=== PATIENT | female | born 1995 | race American Indian/Alaskan Native ===

== ENCOUNTER 2017-02-27 01:55 | Emergency (ER) | payer SELFPAY ==
[2017-02-27 02:02] VITALS: BP 144/85
== END 2017-02-27 02:30 | disposition left against medical advice (07) ==
LOC: ED 01:55
DX: T78.40XA Allergy, unspecified, initial encounter (principal); Z53.21 Procedure and treatment not carried out due to patient leaving prior to being seen by health care provider

== ENCOUNTER 2020-12-21 15:05 | Emergency (ER) | payer SELFPAY ==
[2020-12-21 19:03] VITALS: BP 136/83
[2020-12-21] MEDS ORDERED: ONDANSETRON 4 MG/2 ML INJ IV ONE (19:38)
[2020-12-21] MEDS ORDERED: SODIUM CHLORIDE 0.9% 1000 ML 1,000 ML IV ONE (19:38)
[2020-12-21 20:29] LABS: Basophils # (Auto) 0.1 K/mm3 (0.0-0.1); Basophils % (Auto) 0.9 % (0.0-1.8); Eosinophils % (Auto) 0.8 % (0.0-4.3); Hematocrit 41.8 % (30.3-42.9); Hemoglobin 14.1 gm/dl (10.1-14.3); Lymphocytes # (Auto) 1.6 K/mm3 (1.2-5.4); Lymphocytes % (Auto) 27.4 % (13.4-35.0); Mean Corpuscular HGB Conc 34 % (30-34); Mean Corpuscular Volume 89 fl (79-97); Monocytes # (Auto) 0.7 K/mm3 (0.0-0.8); Monocytes % (Auto) 11.4 % (0.0-7.3); Platelet Count 266 K/mm3 (140-440); Red Cell Distribution Width 14.2 % (13.2-15.2)
[2020-12-21 20:31] LABS: Alanine Aminotransferase 10 units/L (7-56); Albumin 4.1 g/dL (3.9-5); Blood Urea Nitrogen 6 mg/dL (7-17); Calcium 9.2 mg/dL (8.4-10.2); Hemolysis Index 27
[2020-12-21 20:32] LABS: Bilirubin,Urine NEG (Negative); Blood,Urine NEG (Negative); Color,Urine Yellow (Yellow); Mucus,Urine 3+ /HPF; Urobilinogen,Urine < 2.0 mg/dL (<2.0)
[2020-12-21 20:51] LABS: BUN/Creatinine Ratio 9
--- NOTE | 2020-12-21 21:04 | Ultrasound Report ---
TRANSABDOMINAL OB PELVIC ULTRASOUND INDICATION / CLINICAL INFORMATION: Pelvic pain and spotting. COMPARISON: None available. FINDINGS: There is an intrauterine gestational sac with a pole measuring 6 weeks 1 day by crown-rump aura th. The sonographic EDC is 08/15/21. Clinical dates are 6 weeks 2 days. A yolk sac is present. There is cardiac activity with a heart rate of 113 bpm. There is a tiny area of subchorionic hemorrha ge measuring 7 mm in greatest dimension. The left ovary measures 2.8 x 1.8 x 1.5 cm and demonstrates normal blood flow on Doppler exam. The right ovary is not seen. There is no evidence of adnexal mass or free fluid. IMPRESSION: Single viable 6 week 1 day intrauterine . Tiny area of implantation hemorrhage. Signer Name: Mj Wallace MD Signed: 12/21/2020 9:00 PM Workstation Name: [id number]
--- NOTE | 2020-12-21 21:15 | Emergency Department Report ---
ED General Adult HPI - General Chief complaint: Nausea/Vomiting/Diarrhea Stated complaint: NAUSEA VOMITING/6WKS PREG Time Seen by Provider: 12/21/20 19:37 Source: patient Mode of arrival: Ambulatory Limitations: No Limitations - History of Present Illness Initial comments: Patient is a 25-year-old female presents emergency room with complaints of nausea vomiting that began over the last several days. She states that she has not able to tolerate p.o. intake. She states that she has lower abdominal cramping and began having spotting 2 days ago. She denies any heavy bleeding or passing clots. She denies any fever, diarrhea, abnormal vaginal discharge, dysuria, urinary symptoms, back pain. Patient states that she was advised she was . She states that last week she went [facility] and had a positive urine test. She states her last menstrual cycle was 11/07/2020. She states that this is her first . She has not yet had an ultrasound performed. No past medical history. No allergies medications. - Related Data Previous Rx's Medication Instructions Recorded Last Taken Type Metoclopramide [Reglan] 10 mg PO Q8HR PRN #12 tab 12/21/20 Unknown Rx diphenhydrAMINE [Benadryl CAP] 25 mg PO Q8HR PRN #12 capsule 12/21/20 Unknown Rx Allergies Allergy/AdvReac Type Severity Reaction Status Date / Time No Known Allergies Allergy Unverified 12/21/20 19:03 ED Review of Systems ROS: Stated complaint: NAUSEA VOMITING/6WKS PREG Other details as noted in HPI Comment: All other systems reviewed and negative ED Past Medical Hx - Past Medical History Previous Medical History?: No - Social History Smoking Status: Never Smoker Substance Use Type: None - Medications Home Medications: Home Medications Medication Instructions Recorded Confirmed Last Taken Type Metoclopramide [Reglan] 10 mg PO Q8HR PRN #12 tab 12/21/20 Unknown Rx diphenhydrAMINE [Benadryl CAP] 25 mg PO Q8HR PRN #12 capsule 12/21/20 Unknown Rx ED Physical Exam - General Limitations: No Limitations General appearance: alert, in no apparent distress - Head Head exam: Present: atraumatic, normocephalic - Eye Eye exam: Present: normal appearance - ENT ENT exam: Present: mucous membranes moist - Respiratory Respiratory exam: Present: normal lung sounds bilaterally. Absent: respiratory distress, wheezes, rales, rhonchi, stridor, chest wall tenderness, accessory muscle use, decreased breath sounds, prolonged expiratory - Cardiovascular Cardiovascular Exam: Present: regular rate, normal rhythm, normal heart sounds. Absent: systolic murmur, diastolic murmur, rubs, gallop - GI/Abdominal GI/Abdominal exam: Present: soft, normal bowel sounds. Absent: distended, tenderness, guarding, rebound, rigid - Back Exam Back exam: Absent: CVA tenderness (R), CVA tenderness (L) - Neurological Exam Neurological exam: Present: alert, oriented X3 - Psychiatric Psychiatric exam: Present: normal affect, normal mood - Skin Skin exam: Present: warm, dry, intact ED Course Vital Signs 12/21/20 19:02 Temperature 98.5 F Pulse Rate 93 H Respiratory 18 Rate Blood Pressure 136/83 [Right] O2 Sat by Pulse 100 Oximetry ED Medical Decision Making - Lab Data Result diagrams: 12/21/20 19:51 12/21/20 19:51 Lab Results 12/21/20 12/21/20 12/21/20 Range/Units 19:51 19:51 19:51 WBC 5.9 (4.5-11.0) K/mm3 RBC 4.70 (3.65-5.03) M/mm3 Hgb 14.1 (10.1-14.3) gm/dl Hct 41.8 (30.3-42.9) % MCV 89 (79-97) fl MCH 30 (28-32) pg MCHC 34 (30-34) % RDW 14.2 (13.2-15.2) % Plt Count 266 (140-440) K/mm3 Lymph % (Auto) 27.4 (13.4-35.0) % Rabun % (Auto) 11.4 H (0.0-7.3) % Eos % (Auto) 0.8 (0.0-4.3) % Baso % (Auto) 0.9 (0.0-1.8) % Lymph # (Auto) 1.6 (1.2-5.4) K/mm3 Rabun # (Auto) 0.7 (0.0-0.8) K/mm3 Eos # (Auto) 0.0 (0.0-0.4) K/mm3 Baso # (Auto) 0.1 (0.0-0.1) K/mm3 Seg Neutrophils % 59.5 (40.0-70.0) % Seg Neutrophils # 3.5 (1.8-7.7) K/mm3 Sodium 135 L (137-145) mmol/L Potassium 3.9 (3.6-5.0) mmol/L Chloride 99.2 (98-107) mmol/L Carbon Dioxide 23 (22-30) mmol/L Anion Gap 17 mmol/L BUN 6 L (7-17) mg/dL Creatinine 0.7 (0.6-1.2) mg/dL Estimated GFR > 60 ml/min BUN/Creatinine Ratio 9 % Glucose 87 (65-100) mg/dL Calcium 9.2 (8.4-10.2) mg/dL Total Bilirubin 0.40 (0.1-1.2) mg/dL AST 15 (5-40) units/L ALT 10 (7-56) units/L Alkaline Phosphatase 48 (35-129) units/L Total Protein 7.2 (6.3-8.2) g/dL Albumin 4.1 (3.9-5) g/dL Albumin/Globulin Ratio 1.3 % Lipase 14 (13-60) units/L HCG, Quant 22345 H (0-4) mIU/mL Urine Color (Yellow) Urine Turbidity (Clear) Urine pH (5.0-7.0) Ur Specific Chester (1.003-1.030) Urine Protein (Negative) mg/dL Urine Glucose (UA) (Negative) mg/dL Urine Ketones (Negative) mg/dL Urine Blood (Negative) Urine Nitrite (Negative) Urine Bilirubin (Negative) Urine Urobilinogen (<2.0) mg/dL Ur Leukocyte Esterase (Negative) Urine WBC (Auto) (0.0-6.0) /HPF Urine RBC (Auto) (0.0-6.0) /HPF U Epithel Cells (Auto) (0-13.0) /HPF Urine Mucus /HPF Blood Type 12/21/20 12/21/20 Range/Units 19:51 20:02 WBC (4.5-11.0) K/mm3 RBC (3.65-5.03) M/mm3 Hgb (10.1-14.3) gm/dl Hct (30.3-42.9) % MCV (79-97) fl MCH (28-32) pg MCHC (30-34) % RDW (13.2-15.2) % Plt Count (140-440) K/mm3 Lymph % (Auto) (13.4-35.0) % Rabun % (Auto) (0.0-7.3) % Eos % (Auto) (0.0-4.3) % Baso % (Auto) (0.0-1.8) % Lymph # (Auto) (1.2-5.4) K/mm3 Rabun # (Auto) (0.0-0.8) K/mm3 Eos # (Auto) (0.0-0.4) K/mm3 Baso # (Auto) (0.0-0.1) K/mm3 Seg Neutrophils % (40.0-70.0) % Seg Neutrophils # (1.8-7.7) K/mm3 Sodium (137-145) mmol/L Potassium (3.6-5.0) mmol/L Chloride (98-107) mmol/L Carbon Dioxide (22-30) mmol/L Anion Gap mmol/L BUN (7-17) mg/dL Creatinine (0.6-1.2) mg/dL Estimated GFR ml/min BUN/Creatinine Ratio % Glucose (65-100) mg/dL Calcium (8.4-10.2) mg/dL Total Bilirubin (0.1-1.2) mg/dL AST (5-40) units/L ALT (7-56) units/L Alkaline Phosphatase (35-129) units/L Total Protein (6.3-8.2) g/dL Albumin (3.9-5) g/dL Albumin/Globulin Ratio % Lipase (13-60) units/L HCG, Quant (0-4) mIU/mL Urine Color Yellow (Yellow) Urine Turbidity Slightly-cloudy (Clear) Urine pH 6.0 (5.0-7.0) Ur Specific [place] 1.021 (1.003-1.030) Urine Protein 30 mg/dl (Negative) mg/dL Urine Glucose (UA) Neg (Negative) mg/dL Urine Ketones 80 (Negative) mg/dL Urine Blood Neg (Negative) Urine Nitrite Neg (Negative) Urine Bilirubin Neg (Negative) Urine Urobilinogen < 2.0 (<2.0) mg/dL Ur Leukocyte Esterase Neg (Negative) Urine WBC (Auto) 6.0 (0.0-6.0) /HPF Urine RBC (Auto) 2.0 (0.0-6.0) /HPF U Epithel Cells (Auto) 4.0 (0-13.0) /HPF Urine Mucus 3+ /HPF Blood Type A POSITIVE - Radiology Data Radiology results: report reviewed Ordering Physician: VIET SANDERS Date of Service: 12/21/20 Procedure(s): US OB <= 14 weeks fetus Accession Number(s): [id number] cc: VIET SANDERS TRANSABDOMINAL OB PELVIC ULTRASOUND INDICATION / CLINICAL INFORMATION: Pelvic pain and spotting. COMPARISON: None available. FINDINGS: There is an intrauterine gestational sac with a pole measuring 6 weeks 1 day by crown-rump length. The sonographic EDC is 08/15/21. Clinical dates are 6 weeks 2 days. A yolk sac is present. There is cardiac activity with a heart rate of 113 bpm. There is a tiny area of subchorionic hemorrhage measuring 7 mm in greatest dimension. The left ovary measures 2.8 x 1.8 x 1.5 cm and demonstrates normal blood flow on Doppler exam. The right ovary is not seen. There is no evidence of adnexal mass or free fluid. IMPRESSION: Single viable 6 week 1 day intrauterine . Tiny area of implantation hemorrhage. Signer Name: Mj Wallace MD Signed: 12/21/2020 9:00 PM Workstation Name: [id number] Transcribed By: RT Dictated By: Mj Wallace MD Electronically Authenticated By: Mj Wallace MD Signed Date/Time: 12/21/202099 DD/ 56 TD/TT: Print - Medical Decision Making Patient is a 25-year-old female presents emergency room with complaints of nausea vomiting that began over the last several days. She states that she has not able to tolerate p.o. intake. She states that she has lower abdominal cramping and began having spotting 2 days ago. She denies any heavy bleeding or passing clots. She denies any fever, diarrhea, abnormal vaginal discharge, dysuria, urinary symptoms, back pain. Patient states that she was advised she was . She states that last week she went to [facility] and had a positive urine test. She states her last menstrual cycle was 11/07/2020. She states that this is her first . She has not yet had an ultrasound performed. No past medical history. No allergies medications. Vitals are stable. No abdominal tenderness on exam, no guarding, no rebound, no rigidity, no bowel sounds, no peritoneal signs. [place] [id number]. Patient is Rh+. UA is within normal limits. OB ultrasound: IMPRESSION: Single viable 6 week 1 day intrauterine . Tiny area of implantation hemorrhage. Patient given medications while in the emergency department and symptoms improved and she was feeling much better ready to go home. Patient was able to tolerate p.o. intake. Patient given prescription for Reglan and Benadryl. Advised patient Critical care attestation.: If time is entered above; I have spent that time in minutes in the direct care of this critically ill patient, excluding procedure time. ED Disposition Clinical Impression: Abdominal cramping, Vaginal spotting Nausea & vomiting Qualifiers: Vomiting type: unspecified Vomiting Intractability: non-intractable Qualified Code(s): R11.2 - Nausea with vomiting, unspecified Qualifiers: Weeks of gestation: less than 8 weeks Qualified Code(s): Z3A.01 - Less than 8 weeks gestation of Subchorionic hemorrhage in first trimester Qualifiers: Fetus number: single or unspecified fetus Qualified Code(s): O41.8X10 - Other specified disorders of amniotic fluid and membranes, first trimester, not a pplicable or unspecified Disposition: DC-01 TO HOME OR SELFCARE Is pt being admited?: No Does the pt Need Aspirin: No Condition: Stable Instructions: Morning Sickness, [id number], Subchorionic Hematoma Additional Instructions: Please take medication as prescribed. Increase your water intake. Eat a bland liquid diet and slowly advance your diet as tolerated. Please take a vitamin [id number]. Follow-up with your primary care doctor. Follow-up with your [facility]. Return to emergency room for new worsening symptoms. Prescriptions: diphenhydrAMINE [Benadryl CAP] 25 mg PO Q8HR PRN #12 capsule PRN Reason: nausea and vomiting Metoclopramide [Reglan] 10 mg PO Q8HR PRN #12 tab PRN Reason: nausea vomiting Referrals: PRIMARY CARE, [Primary Care Provider] - 2-3 Days [facility] [Provider Group] - 2-3 Days Time of Disposition: 21:14 Print Language: SLOVAK
== END 2020-12-21 21:40 | disposition home or self-care (01) ==
LOC: ED 15:05
DX: O41.8X10 Other specified disorders of amniotic fluid and membranes, first trimester, not applicable or unspecified (principal); O26.851 Spotting complicating pregnancy, first trimester; O21.8 Other vomiting complicating pregnancy; O26.891 Other specified pregnancy related conditions, first trimester; R10.9 Unspecified abdominal pain; Z79.899 Other long term (current) drug therapy; Z3A.01 Less than 8 weeks gestation of pregnancy
CPT/HCPCS: 36415; 76801; 80053; 81001; 83690; 84702; 85025; 86900; 86901; 96361; 96374; 99284; J2405; J7030